=== PATIENT | male | born 1970 | race American Indian/Alaskan Native ===

== ENCOUNTER 2017-05-24 13:09 | Emergency (ER) | payer OTHER ==
[2017-05-24] MEDS ORDERED: ASPIRIN PO ONE (15:21)
[2017-05-24 16:01] LABS: Basophils # (Auto) 0.1 K/mm3 (0.0-0.1); Basophils % (Auto) 0.6 % (0.0-1.8); Eosinophils # (Auto) 0.2 K/mm3 (0.0-0.4); Eosinophils % (Auto) 1.8 % (0.0-4.3); Hematocrit 46.1 % (35.5-45.6); Hemoglobin 15.3 gm/dl (11.8-15.2); Lymphocytes # (Auto) 1.6 K/mm3 (1.2-5.4); Lymphocytes % (Auto) 15.8 % (13.4-35.0); Mean Corpuscular HGB Conc 33 % (32-34); Mean Corpuscular Hemoglobin 29 pg (28-32); Mean Corpuscular Volume 87 fl (84-94); Monocytes # (Auto) 1.1 K/mm3 (0.0-0.8); Monocytes % (Auto) 11.3 % (0.0-7.3); Platelet Count 253 K/mm3 (140-440); Red Blood Count 5.32 M/mm3 (3.65-5.03)
[2017-05-24 16:19] LABS: BUN/Creatinine Ratio 11; Blood Urea Nitrogen 15 mg/dL (9-20); Calcium 9.6 mg/dL (8.4-10.2); Hemolysis Index 4
--- NOTE | 2017-05-24 20:03 | XRay Report ---
FINAL REPORT EXAM: XR CHEST ROUTINE 2V HISTORY: cp/sob TECHNIQUE: PA and lateral views of the chest PRIORS: None. FINDINGS: Lines, tubes, and devices: N/A Lungs and pleura: Trachea is normal in position. Lungs are clear of infiltrate, pleural effusion, vascular congestion, or pneumothorax. Cardiomediastinal silhouette: Cardiac and mediastinal silhouettes are unremarkable. Other: Bony structures are intact. IMPRESSION: No acute cardiopulmonary process seen.
[2017-05-25 00:36] VITALS: BP 115/76
[2017-05-25] MEDS ORDERED: AUGMENTIN 875 MG PO ONE (00:40)
--- NOTE | 2017-05-25 00:40 | Emergency Department Report ---
ED General Adult HPI - General Chief complaint: Chest Pain Stated complaint: coughing up blood Time Seen by Provider: 05/25/17 00:03 Source: patient Mode of arrival: Ambulatory Limitations: No Limitations - History of Present Illness Initial comments: She is a 47-year-old -[place] male who is presenting with cough cold congestion and sinus tenderness for approximately 1 week and a half. Patient states that he was getting nosebleeds specifically when he blows his nose. He says the mucus and streaks of blood sometimes clots of blood. Patient also has postnasal drip and cough. Patient states when he coughs some of the mucus also is bloody. Patient denies fever shortness of breath difficulty breathing fevers chills nausea vomiting diarrhea at this time. The patient does state that he has some mild occasional right-sided chest pain that lasts for seconds at a time. Patient is chest pain-free at this time. Location: face (patient states he has tenderness in the maxillary as well as ethmoid sinus area) Radiation: non-radiation Severity scale (0 -10): 5 Quality: burning - Related Data Previous Rx's Medication Instructions Recorded Last Taken Type Amoxicillin/Potassium Clav 1 each PO TID #21 tablet 05/25/17 Unknown Rx [Augmentin 875-125 Tablet] Benzonatate [Tessalon Perle] 100 mg PO Q8HR #12 capsule 05/25/17 Unknown Rx Fluticasone [Flonase] 1 spray NS QDAY #1 bottle 05/25/17 Unknown Rx Allergies Allergy/AdvReac Type Severity Reaction Status Date / Time No Known Allergies Allergy Verified 05/25/17 00:11 ED Review of Systems ROS: Stated complaint: SORE THROAT Other details as noted in HPI Comment: All other systems reviewed and negative Constitutional: denies: chills, fever Eyes: denies: eye pain, eye discharge, vision change ENT: denies: ear pain, throat pain Respiratory: cough. denies: shortness of breath, wheezing Cardiovascular: denies: chest pain, palpitations Endocrine: no symptoms reported Gastrointestinal: denies: abdominal pain, nausea, diarrhea Genitourinary: denies: urgency, dysuria Musculoskeletal: denies: back pain, joint swelling, arthralgia Skin: denies: rash, lesions Neurological: denies: headache, weakness, paresthesias Psychiatric: denies: anxiety, depression Hematological/Lymphatic: denies: easy bleeding, easy bruising ED Past Medical Hx - Past Medical History Previous Medical History?: Yes Hx Hypertension: Yes - Surgical History Past Surgical History?: No - Medications Home Medications: Home Medications Medication Instructions Recorded Confirmed Last Taken Type Amoxicillin/Potassium Clav 1 each PO TID #21 tablet 05/25/17 Unknown Rx [Augmentin 875-125 Tablet] Benzonatate [Tessalon Perle] 100 mg PO Q8HR #12 capsule 05/25/17 Unknown Rx Fluticasone [Flonase] 1 spray NS QDAY #1 bottle 05/25/17 Unknown Rx ED Physical Exam - General Limitations: No Limitations General appearance: alert, in no apparent distress - Head Head exam: Present: atraumatic, normocephalic - Eye Eye exam: Present: normal appearance - ENT ENT exam: Present: mucous membranes moist, other (patient has some mild tenderness of the sinuses) - Neck Neck exam: Present: normal inspection - Respiratory Respiratory exam: Present: normal lung sounds bilaterally. Absent: respiratory distress - Cardiovascular Cardiovascular Exam: Present: regular rate, normal rhythm. Absent: systolic murmur, diastolic murmur, rubs, gallop - GI/Abdominal GI/Abdominal exam: Present: soft, normal bowel sounds - Rectal Rectal exam: Present: deferred - Extremities Exam Extremities exam: Present: normal inspection - Back Exam Back exam: Present: normal inspection - Neurological Exam Neurological exam: Present: alert, oriented X3 - Psychiatric Psychiatric exam: Present: normal affect, normal mood - Skin Skin exam: Present: warm, dry, intact, normal color. Absent: rash ED Course Vital Signs 05/24/17 05/25/17 15:17 00:27 Temperature 97.8 F 98 F Pulse Rate 77 81 Respiratory 18 16 Rate Blood Pressure 121/85 Blood Pressure 115/76 [Left] O2 Sat by Pulse 98 96 Oximetry ED Medical Decision Making - Lab Data Result diagrams: 05/24/17 15:44 05/24/17 15:44 - EKG Data -: EKG Interpreted by Me EKG shows normal: sinus rhythm, axis, intervals, QRS complexes, ST-T waves Rate: normal - EKG Data Interpretation: normal EKG - Medical Decision Making Patient is a 47-year-old male who is presenting with symptoms of acute sinusitis. Patient most likely has some postnasal drip and is coughing up some bloody mucus secondary to a sinus infection. Patient was started on Augmentin and symptom control and be discharged home. Critical Care Time: No Critical care attestation.: If time is entered above; I have spent that time in minutes in the direct care of this critically ill patient, excluding procedure time. ED Disposition Clinical Impression: Acute sinusitis Disposition: DC-01 TO HOME OR SELFCARE Is pt being admited?: No Does the pt Need Aspirin: No Condition: Fair Instructions: Sinusitis (ED) Prescriptions: Amoxicillin/Potassium Clav [Augmentin 875-125 Tablet] 1 each PO TID #21 tablet Benzonatate [Tessalon Perle] 100 mg PO Q8HR #12 capsule Fluticasone [Flonase] 1 spray NS QDAY #1 bottle Referrals: ROM ELAINE MD [Primary Care Provider] - 3-5 Days
== END 2017-05-25 00:50 | disposition home or self-care (01) ==
LOC: ED 13:09
DX: J01.90 Acute sinusitis, unspecified (principal); I10 Essential (primary) hypertension
CPT/HCPCS: 36415; 71046; 80048; 84484; 85025; 93005; 93010; 99284

== ENCOUNTER 2017-10-14 18:03 | Inpatient (IN) | payer OTHER ==
[2017-10-14] MEDS ORDERED: ASPIRIN PO ONE (18:21)
[2017-10-14 18:38] LABS: Basophils % (Auto) 0.4 % (0.0-1.8); Eosinophils # (Auto) 0.1 K/mm3 (0.0-0.4); Eosinophils % (Auto) 0.7 % (0.0-4.3); Hematocrit 43.6 % (35.5-45.6); Hemoglobin 14.7 gm/dl (11.8-15.2); Lymphocytes # (Auto) 1.3 K/mm3 (1.2-5.4); Mean Corpuscular HGB Conc 34 % (32-34); Mean Corpuscular Hemoglobin 30 pg (28-32); Mean Corpuscular Volume 87 fl (84-94); Monocytes # (Auto) 0.7 K/mm3 (0.0-0.8); Monocytes % (Auto) 9.2 % (0.0-7.3); Platelet Count 218 K/mm3 (140-440); Red Blood Count 4.98 M/mm3 (3.65-5.03); Red Cell Distribution Width 14.7 % (13.2-15.2)
[2017-10-14 18:56] LABS: BUN/Creatinine Ratio 5; Blood Urea Nitrogen 6 mg/dL (9-20); Hemolysis Index 1
[2017-10-15] MEDS ORDERED: ASPIRIN ONE (01:37)
[2017-10-15] MEDS ORDERED: PERCOCET 5/325 PO ONE (03:41)
--- NOTE | 2017-10-15 03:51 | Emergency Department Report ---
ED Chest Pain HPI - General Chief Complaint: Chest Pain Stated Complaint: CHEST PAIN Time Seen by Provider: 10/15/17 03:37 Source: patient Mode of arrival: Ambulatory Limitations: No Limitations - History of Present Illness Initial Comments: Mr. Jaime is a 47-year-old male with history of hypertension and tobacco abuse. He has severe right-sided chest pain radiating to the right neck and right upper quadrant. No recent travel. No history of leg pain. MD Complaint: chest pain -: Gradual, days(s) (1) Onset: during rest Pain Location: right chest Pain Radiation: neck, abdomen Severity scale (0 -10): 10 Quality: sharp Consistency: constant Worsens With: inspiration, movement re: nausea, vomting - Related Data Home Medications Medication Instructions Recorded Confirmed Last Taken No Known Home Medications [No 10/15/17 10/15/17 Unknown Reported Home Medications] Allergies Allergy/AdvReac Type Severity Reaction Status Date / Time No Known Allergies Allergy Verified 05/25/17 00:11 Heart Score - HEART Score History: Slightly suspicious EKG: Normal Age: 45-65 Risk factors: 1-2 risk factors Troponin: < normal limit HEART Score: 2 ED Review of Systems ROS: Stated complaint: CHEST PAIN Other details as noted in HPI Comment: All other systems reviewed and negative Constitutional: denies: fever, malaise Respiratory: denies: cough Cardiovascular: chest pain Gastrointestinal: abdominal pain, nausea, vomiting ED Past Medical Hx - Past Medical History Previous Medical History?: Yes Hx Hypertension: Yes - Surgical History Past Surgical History?: No - Family History Family history: CAD/NH - Social History Smoking Status: Current Every Day Smoker Substance Use Type: None - Medications Home Medications: Home Medications Medication Instructions Recorded Confirmed Last Taken Type No Known Home Medications [No 10/15/17 10/15/17 Unknown History Reported Home Medications] ED Physical Exam - General Limitations: No Limitations General appearance: alert, in no apparent distress - Head Head exam: Present: atraumatic, normocephalic - Eye Eye exam: Present: normal appearance - ENT ENT exam: Present: mucous membranes moist - Neck Neck exam: Present: normal inspection. Absent: tenderness, meningismus - Respiratory Respiratory exam: Present: normal lung sounds bilaterally. Absent: respiratory distress, wheezes, rales, rhonchi - Cardiovascular Cardiovascular Exam: Present: regular rate, normal rhythm, other (pain with palpation right chest). Absent: systolic murmur, diastolic murmur, rubs, gallop - GI/Abdominal GI/Abdominal exam: Present: soft, tenderness (ruq tenderness), normal bowel sounds. Absent: distended, guarding, rebound - Rectal Rectal exam: Present: deferred - Extremities Exam Extremities exam: Present: normal inspection - Back Exam Back exam: Present: normal inspection - Neurological Exam Neurological exam: Present: alert, oriented X3 - Psychiatric Psychiatric exam: Present: normal affect, normal mood - Skin Skin exam: Present: warm, dry, intact, normal color. Absent: rash ED Course Vital Signs 10/14/17 10/15/17 10/15/17 18:08 01:25 01:33 Temperature 98.5 F 98.9 F Pulse Rate 81 82 81 Respiratory 20 11 L 16 Rate Blood Pressure 148/97 Blood Pressure 135/89 [Left] O2 Sat by Pulse 97 97 99 Oximetry 10/15/17 10/15/17 02:00 03:30 Temperature 98.2 F Pulse Rate 81 83 Respiratory 22 Rate Blood Pressure 132/81 Blood Pressure 125/79 [Left] O2 Sat by Pulse 99 Oximetry ED Medical Decision Making - Lab Data Result diagrams: 10/14/17 18:26 10/14/17 18:26 Laboratory Results - last 24 hr 10/14/17 10/14/17 10/14/17 18:26 18:26 20:58 WBC 7.8 RBC 4.98 Hgb 14.7 Hct 43.6 MCV 87 MCH 30 MCHC 34 RDW 14.7 Plt Count 218 Lymph % (Auto) 16.0 Noble % (Auto) 9.2 H Eos % (Auto) 0.7 Baso % (Auto) 0.4 Lymph # 1.3 Noble # 0.7 Eos # 0.1 Baso # 0.0 Seg Neutrophils % 73.7 H Seg Neutrophils # 5.8 Sodium 138 Potassium 4.0 Chloride 100.9 Carbon Dioxide 27 Anion Gap 14 BUN 6 L Creatinine 1.3 Estimated GFR > 60 BUN/Creatinine Ratio 5 Glucose 93 Calcium 9.0 Troponin T < 0.010 < 0.010 10/15/17 02:22 WBC RBC Hgb Hct MCV MCH MCHC RDW Plt Count Lymph % (Auto) Noble % (Auto) Eos % (Auto) Baso % (Auto) Lymph # Noble # Eos # Baso # Seg Neutrophils % Seg Neutrophils # Sodium Potassium Chloride Carbon Dioxide Anion Gap BUN Creatinine Estimated GFR BUN/Creatinine Ratio Glucose Calcium Troponin T < 0.010 Vital Signs - 24 hr 10/14/17 10/15/17 10/15/17 18:08 01:25 01:33 Temperature 98.5 F 98.9 F Pulse Rate 81 82 81 Respiratory 20 11 L 16 Rate Blood Pressure 148/97 Blood Pressure 135/89 [Left] O2 Sat by Pulse 97 97 99 Oximetry 10/15/17 02:00 Temperature Pulse Rate 81 Respiratory Rate Blood Pressure 132/81 Blood Pressure [Left] O2 Sat by Pulse Oximetry - EKG Data 10/15/17 03:45 EKG obtained 2121 Rate 70 bpm normal sinus rhythm normal axis normal intervals no ST elevationof ischemia or signs of pericarditis EKG unchanged from 05/24/2017 there is P-wave enlargement - Medical Decision Making Mr. Jaime presents with constant right-sided chest and abdominal pain worse with inspiration. CTA revealed pulmonary arterial emboli in the right lower lobe with small bilateral effusions. Admitted to the hospitalist service. Heparin protocol initiated in the ED. Critical care attestation.: If time is entered above; I have spent that time in minutes in the direct care of this critically ill patient, excluding procedure time. ED Disposition Clinical Impression: Pulmonary emboli Disposition: OP ADMIT IP TO THIS HOSP Is pt being admited?: Yes Does the pt Need Aspirin: No Condition: Stable Referrals: PRIMARY CARE, [Primary Care Provider] - 3-5 Days Time of Disposition: 04:45
--- NOTE | 2017-10-15 04:51 | Cat Scan Report ---
FINAL REPORT EXAM: CT ANGIO CHEST HISTORY: right chest pain TECHNIQUE: A CT angiogram was performed following the intravenous injection of 100 cc of Omnipaque 350. Sagittal and coronal MIP reconstructions were reviewed. FINDINGS: The lungs are mildly congested with bilateral small effusions. There are atelectatic changes in the right lower lobe. The heart size is normal. Pericardial fluid is not seen. There are several partially occlusive emboli in the secondary right lower lobe pulmonary arteries. No additional emboli are identified. There no evidence of adenopathy. The skeletal structures do not show any acute changes. The thoracic aorta appears normal. At the thoracic inlet the thyroid gland appears normal. IMPRESSION: Several partially occlusive emboli in the right lower lobe pulmonary arteries. Mild vascular congestion with bilateral small pleural effusions. Atelectatic changes in the right lower lobe noted also. No evidence of thoracic aortic aneurysm or dissection
--- NOTE | 2017-10-15 05:10 | Cat Scan Report ---
FINAL REPORT EXAM: CT ABDOMEN PELVIS W CON HISTORY: ruq pain TECHNIQUE: Routine axial imaging was obtained of the abdomen and pelvis following the intravenous injection of 100 cc of Omnipaque 350. Sagittal and coronal reconstructions were reviewed. Delayed imaging was obtained of the kidneys ureters and bladder. FINDINGS: The lung bases reveal bilateral small effusions with atelectatic changes in the right lower lobe. The liver, gallbladder, biliary tree, pancreas, spleen, and adrenal glands appear normal. The kidneys enhance normally. There is a 1 cm cortical cyst posteriorly in the left kidney. There is no evidence of hydronephrosis. The vascular structures enhance normally. The bowel loops are normal in caliber and course. The appendix is not enlarged. There is no evidence of free fluid or adenopathy. In the pelvis the prostate gland and bladder appear normal. The skeletal structures reveal arthritic changes at the L4-5 level in the lumbar spine. IMPRESSION: No acute process in the abdomen and pelvis. Disc degeneration at the L4-5 level. Bilateral small effusions with atelectatic changes in the right lower lobe.
[2017-10-15] MEDS ORDERED: HEPARIN 10,000 UNITS/10 ML IV ONE (05:20)
[2017-10-15] MEDS ORDERED: ZOFRAN IV ONE (05:22)
[2017-10-15] MEDS ORDERED: DILAUDID IV ONE (05:22)
[2017-10-15] MEDS ORDERED: MORPHINE IV PRN (05:30)
[2017-10-15] MEDS ORDERED: ZOFRAN IV PRN (05:32)
[2017-10-15] MEDS ORDERED: TYLENOL PO PRN (05:34)
[2017-10-15 05:59] LABS: Partial Thromboplastin Time 32.3 Sec. (24.2-36.6)
[2017-10-15] MEDS: HEPARIN/ 0.45% NACL-25,000 UNIT/500 ML 25,000 UNIT/500 ML BAG IV SCH (06:03)
[2017-10-15 07:24] LABS: Creatine Kinase MB < 1.0 ng/mL (0.0-4.0)
--- NOTE | 2017-10-15 13:57 | Event Note ---
Date: 10/15/17 Pt seen and examined Admitted for Acute PE and DVT, cont heparin drip, also started on coumadin from today. Will cont current Mx and plan as dictated in h and p.
[2017-10-15 14:25] LABS: Creatine Kinase MB < 1.0 ng/mL (0.0-4.0)
--- NOTE | 2017-10-15 16:59 | Consultation ---
History of Present Illness Consult date: 10/15/17 Requesting physician: WILLIS CROCKETT Reason for consult: pulmonary embolism Medications and Allergies Allergies Allergy/AdvReac Type Severity Reaction Status Date / Time No Known Allergies Allergy Verified 05/25/17 00:11 Home Medications Medication Instructions Recorded Confirmed Last Taken Type No Known Home Medications [No 10/15/17 10/15/17 Unknown History Reported Home Medications] Active Meds: Active Medications Acetaminophen (Tylenol) 650 mg PO Q4H PRN PRN Reason: For Mild Pain/Fever/Headache Heparin Sodium/Sodium Chloride (Heparin/ 0.45% Nacl-25,000 Unit/500 Ml) 25,000 unit in 500 mls @ 26 mls/hr IV TITR [facility]; Protocol Last Admin: 10/15/17 06:03 Dose: 1,300 units/hr, 26 mls/hr Morphine Sulfate (Morphine) 2 mg IV Q3H PRN PRN Reason: Pain, Moderate (4-6) Last Admin: 10/15/17 12:59 Dose: 2 mg Ondansetron HCl (Zofran) 4 mg IV Q8H PRN PRN Reason: Nausea And Vomiting Last Admin: 10/15/17 12:59 Dose: 4 mg Oxycodone/Acetaminophen (Percocet 5/325) 2 tab PO Q4H PRN PRN Reason: Pain, Moderate (4-6) Warfarin Sodium (Coumadin) 7.5 mg PO DAILY@1700 [facility]; Protocol Warfarin Sodium (Coumadin Pharmacy To Dose) 1 each PO PKCONSULT [facility] Physical Examination Vital signs: Vital Signs Temp Pulse Resp BP Pulse Ox 98.5 F 81 20 148/97 97 10/14/17 18:08 10/14/17 18:08 10/14/17 18:08 10/14/17 18:08 10/14/17 18:08 Results - Laboratory Findings CBC and BMP: 10/14/17 18:26 10/14/17 18:26 PT/INR, D-dimer PT 13.7 Sec. (12.2-14.9) 10/15/17 05:41 INR 1.00 (0.87-1.13) 10/15/17 05:41 Abnormal lab findings: Abnormal Labs 10/14/17 10/14/17 18:26 18:26 [place] % (Auto) 9.2 H Seg Neutrophils % 73.7 H BUN 6 L
[2017-10-15] MEDS: COUMADIN PO SCH (19:01)
[2017-10-15] MEDS ORDERED: MORPHINE IV ONE (20:46)
[2017-10-16] MEDS: HEPARIN/ 0.45% NACL-25,000 UNIT/500 ML 25,000 UNIT/500 ML BAG IV SCH ×2 (01:12→19:38)
[2017-10-16 06:35] LABS: INR 1.06 (0.87-1.13)
[2017-10-16] MEDS: PERCOCET 5/325 PO PRN ×2 (08:39→19:39)
--- NOTE | 2017-10-16 09:31 | Hem/Onc Consultation ---
History of Present Illness - Reason for Consult Consult date: 10/16/17 - History of Present Illness dictated Medications and Allergies Allergies Allergy/AdvReac Type Severity Reaction Status Date / Time No Known Allergies Allergy Verified 05/25/17 00:11 Home Medications Medication Instructions Recorded Confirmed Last Taken Type No Known Home Medications [No 10/15/17 10/15/17 Unknown History Reported Home Medications] Active Meds: Active Medications Acetaminophen (Tylenol) 650 mg PO Q4H PRN PRN Reason: For Mild Pain/Fever/Headache Heparin Sodium/Sodium Chloride (Heparin/ 0.45% Nacl-25,000 Unit/500 Ml) 25,000 unit in 500 mls @ 26 mls/hr IV TITR [facility]; Protocol Last Admin: 10/16/17 01:12 Dose: 1,300 units/hr, 26 mls/hr Morphine Sulfate (Morphine) 2 mg IV Q3H PRN PRN Reason: Pain, Moderate (4-6) Last Admin: 10/15/17 12:59 Dose: 2 mg Ondansetron HCl (Zofran) 4 mg IV Q8H PRN PRN Reason: Nausea And Vomiting Last Admin: 10/15/17 12:59 Dose: 4 mg Oxycodone/Acetaminophen (Percocet 5/325) 2 tab PO Q4H PRN PRN Reason: Pain, Moderate (4-6) Last Admin: 10/16/17 08:39 Dose: 2 tab Warfarin Sodium (Coumadin) 7.5 mg PO DAILY@1700 [facility]; Protocol Last Admin: 10/15/17 19:01 Dose: 7.5 mg Warfarin Sodium (Coumadin Pharmacy To Dose) 1 each PO PKCONSULT [facility] Exam - Constitutional Vitals: Last Vital Signs Temp 99.0 F 10/16/17 06:09 Pulse 72 10/16/17 06:09 Resp 20 10/16/17 06:09 BP 105/56 10/16/17 06:09 Pulse Ox 98 10/16/17 08:16 Results - Labs lab Results: Laboratory Results - last 24 hr 10/15/17 10/15/17 10/15/17 13:37 13:37 18:43 PT INR Heparin Anti-Xa Level 0.47 POC ABG pH 7.457 H POC ABG pCO2 36.7 POC ABG pO2 70 L POC ABG HCO3 26.0 POC ABG Total CO2 27 POC ABG O2 Sat 95 POC ABG Base Excess 2 FiO2 21 Total Creatine Kinase 96 CK-MB (CK-2) < 1.0 CK-MB (CK-2) Rel Index 1.0 Troponin T < 0.010 10/16/17 Unknown PT 14.4 INR 1.06 Heparin Anti-Xa Level POC ABG pH POC ABG pCO2 POC ABG pO2 POC ABG HCO3 POC ABG Total CO2 POC ABG O2 Sat POC ABG Base Excess FiO2 Total Creatine Kinase CK-MB (CK-2) CK-MB (CK-2) Rel Index Troponin T
--- NOTE | 2017-10-16 10:45 | Progress Note ---
Assessment and Plan Acute Respiratory Distress Severe Chest Pain Acute Pulmonary Embolism HTN Tobacco Use Disorder DJD - supplemental oxygen to keep O2 Sats > 90% prn - prn analgesia - add incentive spirometry - continue IV heparin - Oral anticoagulation X 3 months - GI prophylaxis - Flu & Pneumovax per protocol - tobacco cessation counselled .. 25' Subjective Date of service: 10/16/17 Principal diagnosis: Acute Pulmonary Embolism; Severe Chest Pain; Tobacco Abuse Interval history: Patient is seen today for: Acute Pulmonary Embolism Seen and examined at bedside; 24hour events reviewed; nursing and respiratory care staff consulted; no adverse overnight events reported to me; resting peacefully in bed; chest pain better; no hemoptysis; on IV heparin; No N/V/F/C Objective Vital Signs - 12hr 10/15/17 10/16/17 10/16/17 23:39 06:09 07:53 Temperature 99.4 F 99.0 F 99.9 F H Pulse Rate 75 72 78 Respiratory 20 20 18 Rate Blood Pressure 128/75 105/56 121/63 O2 Sat by Pulse 98 98 99 Oximetry 10/16/17 08:16 Temperature Pulse Rate Respiratory Rate Blood Pressure O2 Sat by Pulse 98 Oximetry Constitutional: alert, appears uncomfortable Eyes: non-icteric ENT: oropharynx moist, other (mallampatti 2) Neck: supple, no lymphadenopathy, no JVD, other (no thyromegaly) Effort: mildly labored Ascultation: Bilateral: clear Percussion: Bilateral: not dull Cardiovascular: regular rate and rhythm, other (No R/M) Gastrointestinal: normoactive bowel sounds, soft, non-tender, non-distended, other (No HSM) Integumentary: normal Extremities: no cyanosis, no edema, pulses normal, no ischemia or petechiae Neurologic: normal mental status, non-focal exam, pupils equal and round, CN II- XII normal Psychiatric: anxious CBC and BMP: 10/17/17 05:09 10/14/17 18:26 ABG, PT/INR, D-dimer: ABG POC ABG pH 7.457 (7.35-7.45) H 10/15/17 18:43 POC ABG pCO2 36.7 (35-45) 10/15/17 18:43 POC ABG pO2 70 (80-105) L 10/15/17 18:43 POC ABG HCO3 26.0 10/15/17 18:43 POC ABG Total CO2 27 10/15/17 18:43 POC ABG O2 Sat 95 10/15/17 18:43 PT/INR, D-dimer PT 14.4 Sec. (12.2-14.9) 10/16/17 Unknown INR 1.06 (0.87-1.13) 10/16/17 Unknown Abnormal lab findings: Abnormal Labs 10/14/17 10/14/17 10/15/17 18:26 18:26 18:43 [place] % (Auto) 9.2 H Seg Neutrophils % 73.7 H POC ABG pH 7.457 H POC ABG pO2 70 L BUN [address] scan - chest: report reviewed Allied health notes reviewed: nursing
--- NOTE | 2017-10-16 15:16 | Progress Note ---
Assessment and Plan RT sided acute PE - patially occlusive right LL pulmonary artery - cont heparin drip, po coumadin - follow hematology recommendation - will f/u 2d echo result Acute respiratory failure - due to acute PE - duenebs, anticoagulation, N/C O2 to keep O2 sat >92% Degenerative joint disease, supportive care, outpt f/u h/o HTN, stable with dietary control Subjective Date of service: 10/16/17 Principal diagnosis: Acute Pulmonary Embolism Interval history: Pt seen and examined c/o right sided pleuretic chest pain Objective - Constitutional Vitals: Vital Signs - 12hr 10/16/17 10/16/17 10/16/17 06:09 07:53 08:16 Temperature 99.0 F 99.9 F H Pulse Rate 72 78 Respiratory 20 18 Rate Blood Pressure 105/56 121/63 O2 Sat by Pulse 98 99 98 Oximetry 10/16/17 12:18 Temperature 98.1 F Pulse Rate 57 L Respiratory 18 Rate Blood Pressure 90/55 O2 Sat by Pulse 95 Oximetry General appearance: Present: no acute distress, well-nourished - EENT Eyes: PERRL, EOM intact ENT: hearing intact, clear oral mucosa Ears: bilateral: normal - Neck Neck: supple, normal ROM - Respiratory Respiratory effort: normal Respiratory: bilateral: CTA - Cardiovascular Rhythm: regular Heart Sounds: Present: S1 & S2. Absent: gallop, rub Extremities: pulses intact, No edema, normal color, Full ROM - Gastrointestinal General gastrointestinal: Present: soft, non-tender, non-distended, normal bowel sounds - Integumentary Integumentary: clear, warm, dry - Musculoskeletal Musculoskeletal: 1, strength equal bilaterally - Neurologic Neurologic: moves all extremities - Psychiatric Psychiatric: memory intact, appropriate mood/affect, intact judgment & insight - Labs CBC & Chem 7: 10/17/17 05:09 10/14/17 18:26 Labs: Abnormal lab results 10/15/17 Range/Units 18:43 POC ABG pH 7.457 H (7.35-7.45) POC ABG pO2 70 L (80-105)
[2017-10-16] MEDS: COUMADIN PO SCH (17:39)
[2017-10-17 05:51] LABS: Hematocrit 37.2 % (35.5-45.6); Hemoglobin 12.9 gm/dl (11.8-15.2)
[2017-10-17 05:59] LABS: INR 1.15 (0.87-1.13)
[2017-10-17] MEDS: PERCOCET 5/325 PO PRN ×3 (09:26→22:02)
[2017-10-17] MEDS: HEPARIN/ 0.45% NACL-25,000 UNIT/500 ML 25,000 UNIT/500 ML BAG IV SCH (13:17)
--- NOTE | 2017-10-17 14:31 | Progress Note ---
Assessment and Plan RT sided acute PE - patially occlusive right LL pulmonary artery - start on eliquis - follow hematology recommendation - preserved EF on 2d echo Acute respiratory failure - due to acute PE - duenebs, anticoagulation, N/C O2 to keep O2 sat >92% Degenerative joint disease, supportive care, outpt f/u h/o HTN, stable with dietary control Subjective Date of service: 10/17/17 Principal diagnosis: Acute Pulmonary Embolism Interval history: Pt seen and examined c/o right sided pleuretic chest pain, but improved Objective - Constitutional Vitals: Vital Signs - 12hr 10/17/17 10/17/17 10/17/17 03:56 05:00 07:50 Temperature 100.9 F H Pulse Rate 81 84 Respiratory 16 20 Rate Blood Pressure 115/67 O2 Sat by Pulse 99 Oximetry 10/17/17 10/17/17 09:26 10:26 Temperature Pulse Rate Respiratory 20 20 Rate Blood Pressure O2 Sat by Pulse Oximetry General appearance: Present: no acute distress - EENT Eyes: PERRL, EOM intact ENT: hearing intact, clear oral mucosa Ears: bilateral: normal - Neck Neck: supple, normal ROM - Respiratory Respiratory effort: normal Respiratory: bilateral: CTA - Cardiovascular Rhythm: regular Heart Sounds: Present: S1 & S2. Absent: gallop, rub Extremities: pulses intact, No edema, normal color, Full ROM - Gastrointestinal General gastrointestinal: Present: soft, non-tender, non-distended, normal bowel sounds - Integumentary Integumentary: clear, warm, dry - Musculoskeletal Musculoskeletal: 1, strength equal bilaterally - Neurologic Neurologic: moves all extremities - Psychiatric Psychiatric: memory intact, appropriate mood/affect, intact judgment & insight - Labs CBC & Chem 7: 10/17/17 05:09 10/14/17 18:26 Labs: Abnormal lab results 10/17/17 Range/Units 05:09 PT 15.3 H (12.2-14.9) Sec. INR 1.15 H (0.87-1.13) - Imaging and cardiology CT scan - chest: report reviewed
--- NOTE | 2017-10-17 19:12 | Progress Note ---
Assessment and Plan atient still complaining pleuritic type of chest pain right lower chest.Patient is on 2 litres O2 via nasal canula.O2 saturation 98%. Patient is on I/V Heparin. Patient smokes. 1 Pck of cigaretts/day for 20 years.Counselled to stop smoking. - Patient Problems (1) Pulmonary emboli Current Visit: Yes Status: Acute Plan to address problem: Patient is on I/V Heparin O2 supplementation. Patient also started on PO Apixaban. Recommend to get Protein C, Protein S, Anti thrombin level. (2) Tobacco use disorder Current Visit: Yes Status: Acute Plan to address problem: Counselled to stop smoking. Subjective Date of service: 10/17/17 Principal diagnosis: Acute Pulmonary Embolism Interval history: Patient still complaining pleuritic type of chest pain right lower chest.Patient is on 2 litres O2 via nasal canula.O2 saturation 98%. Patient is on I/V Heparin. Patient smokes. 1 Pck of cigaretts/day for 20 years.Counselled to stop smoking. Objective Vital Signs - 12hr 10/17/17 10/17/17 10/17/17 07:50 09:26 10:26 Respiratory 20 20 20 Rate 10/17/17 17:08 Respiratory 20 Rate Constitutional: no acute distress, alert Eyes: non-icteric Neck: supple Effort: mildly labored Ascultation: Right: diminished breath sounds Cardiovascular: regular rate and rhythm Gastrointestinal: normoactive bowel sounds, soft, non-tender Integumentary: normal Extremities: no cyanosis, no edema Neurologic: normal mental status, non-focal exam, pupils equal and round, CN II- XII normal Psychiatric: mood appropriate CBC and BMP: 10/17/17 05:09 10/14/17 18:26 ABG, PT/INR, D-dimer: ABG POC ABG pH 7.457 (7.35-7.45) H 10/15/17 18:43 POC ABG pCO2 36.7 (35-45) 10/15/17 18:43 POC ABG pO2 70 (80-105) L 10/15/17 18:43 POC ABG HCO3 26.0 10/15/17 18:43 POC ABG Total CO2 27 10/15/17 18:43 POC ABG O2 Sat 95 10/15/17 18:43 PT/INR, D-dimer PT 15.3 Sec. (12.2-14.9) H 10/17/17 05:09 INR 1.15 (0.87-1.13) H 10/17/17 05:09 Abnormal lab findings: Abnormal Labs 10/14/17 10/14/17 10/15/17 18:26 18:26 18:43 [place] % (Auto) 9.2 H Seg Neutrophils % 73.7 H PT INR Heparin Anti-Xa Level POC ABG pH 7.457 H POC ABG pO2 70 L BUN 6 L 10/17/17 10/17/17 05:09 15:03 [place] % (Auto) Seg Neutrophils % PT 15.3 H INR 1.15 H Heparin Anti-Xa Level 0.26 L POC ABG pH POC ABG pO2 BUN CT scan - chest: report reviewed (Several partially occuluded emboli in right lower lobe pulmonary arteries.) Prior PFT's, U/S of legs: report reviewed (No evidence of DVT in either legs.)
[2017-10-17] MEDS: ELIQUIS PO SCH (22:02)
[2017-10-18] MEDS: PERCOCET 5/325 PO PRN ×2 (05:25→09:48)
[2017-10-18 05:30] VITALS: BP 128/73
[2017-10-18 06:36] LABS: INR 1.63 (0.87-1.13)
--- NOTE | 2017-10-18 09:15 | History and Physical Report ---
CHIEF COMPLAINT: Right-sided chest pain. HISTORY OF PRESENTING ILLNESS: The patient is a 47-year-old male, who said he has been having right-sided chest pain, radiating to the right side of the neck and right upper abdominal quadrant. There is also a history of associated shortness of breath with no cough. The patient denied history of nausea and vomiting and denied a history of diaphoresis and said the pain is worsened by inspiration and movement. There is no history of fever or chills. PAST MEDICAL HISTORY: Pertinent for hypertension. PAST SURGICAL HISTORY: Unremarkable. FAMILY HISTORY: Pertinent for coronary artery disease. SOCIAL HISTORY: The patient smokes cigarettes, does not drink alcohol, does not use illicit drugs. MEDICATIONS: The patient's home medications are not known. ALLERGIES: There are no known drug allergies. REVIEW OF SYSTEMS: CONSTITUTIONAL: There is no fever, no chills, no diaphoresis. HEENT: There is no headache or sore throat. CARDIOVASCULAR: Right-sided chest pain noted. No orthopnea. RESPIRATORY: Shortness of breath noted. No cough. GASTROINTESTINAL: There is no nausea, no vomiting. Right upper quadrant abdominal pain noted. No constipation. No diarrhea. MUSCULOSKELETAL: There is no joint pain or swelling. NEUROLOGICAL: There is no dizziness, no altered mental status. DERMATOLOGICAL: There is no skin rash or itching. GENITOURINARY: There is no dysuria, hematuria or flank pain. Rest of system review is normal. PHYSICAL EXAMINATION: GENERAL: At the time of exam, the patient was found to be alert, oriented x 3 and not in acute distress. VITAL SIGNS: Show temperature of 98.2, pulse of 83, respirations 22, blood pressure 125/79, O2 sat of 99% on room air. HEENT: Shows pupils to be equal, round, reactive to light and accommodation. Extraocular muscles are intact. NECK: Supple with no JVD or carotid bruit. CARDIOVASCULAR: Showed normal first and second heart sounds with no gallops or murmurs. RESPIRATORY: Shows good air entry on both sides of the lungs with no abnormal breath sounds. GASTROINTESTINAL: Show abdomen to be full, soft, nontender with no organomegaly or rigidity. NEUROLOGICAL: Shows no focal deficit. MUSCULOSKELETAL: Shows no joint swelling or tenderness. DERMATOLOGICAL: Showing no skin rash. GENITOURINARY: Showing no costovertebral angle tenderness. PERTINENT LABORATORY AND IMAGING STUDIES: The patient had a CBC done that came back unremarkable except for abnormal CBC differential showing elevated monocyte count of 9.2 and elevated segmented neutrophil of 73.7. The patient's chemistry was unremarkable and the patient's cardiac enzyme troponin came back unremarkable. IMAGING STUDIES: The patient has CT of the abdomen and pelvis done with contrast that shows no acute process in the abdomen. There is finding of disk degeneration at the level of lumbar 4 and 5 with bilateral small effusion with atelectatic changes in the right lower lobe of the lung. The patient has CT angiogram of the chest done that shows several partially occlusive emboli in the right lower lobe of the pulmonary artery. There is also finding of mild vascular congestion with bilateral small pleural effusions and atelectatic changes in the right lower lobe. There is no evidence of thoracic aortic aneurysm or dissection. DIAGNOSES: 1. Right lung pulmonary embolism. 2. Degenerative joint disease. PLAN: The patient will be admitted to medical floor on telemetry. We will continue IV heparin bolus and drip ordered in the Emergency Room. The patient will be started on Coumadin 5 mg by mouth daily after the heparin drip must have been started and Pharmacy is consulted to manage the Coumadin treatment. The patient will have PT/INR in the morning of 10/16/2017. The patient will also be on morphine 2 mg every 3 hours as needed for pain and will be on IV Zofran 4 mg every 8 hours for nausea and vomiting. The patient will be on Tylenol 650 mg by mouth every 4 hours for fever and headache and will have 2D echo done this morning to try to determine the source of the pulmonary embolism. Also, the patient will have bilateral Doppler ultrasound of the lower extremity to rule out DVT as the possible source of pulmonary embolism. The patient will be on oxygen by nasal cannula at 2 liters per minute and diet will be 2 g sodium diet. JOB# [id number] OCN/NTS
[2017-10-18] MEDS: ELIQUIS PO SCH (09:48)
--- NOTE | 2017-10-18 09:53 | Consultation ---
REFERRING PHYSICIAN: Dr. Pete. REASON FOR CONSULTATION: Pulmonary embolus. HISTORY OF PRESENT ILLNESS: The patient is a 47-year-old male with history of hypertension and tobacco abuse who started having pain in his right side of the chest and arm. He states that the pain was unprovoked. He presented to the hospital where he underwent a CT angiogram where he was found to have pulmonary emboli in the right lower lobe with small bilateral effusions. The patient was started on heparin. An Oncology consult was called for unprovoked DVT. The patient denies any previous history of DVT. He states he has been under a lot of stress. He has lost about 20 pounds, but he says he has had some issues with the family and that has been a bit of a stress. Thus, he lost his appetite. Denies any previous history of malignancy. Denies any family history of malignancy. Denies any prolonged travel. He does not take any hormones. PAST MEDICAL HISTORY: Positive for hypertension. SOCIAL HISTORY: Positive for tobacco abuse. Does not drink alcohol. REVIEW OF SYSTEMS: Positive for weight loss. PHYSICAL EXAMINATION: GENERAL: The patient is awake and oriented. HEENT: Reveals head to be atraumatic. CHEST: Decreased breath sounds and poor inspiratory effort. ABDOMEN: Soft. EXTREMITIES: No clubbing, cyanosis, or edema. LABORATORY DATA: Pertinent labs, patient's hemoglobin on admission 14.7, white count 7.8, platelets 218,000. INR 1.0. ASSESSMENT: 1. Pulmonary emboli in this young patient, unprovoked. 2. Tobacco abuse. PLAN: At this time, we will do hypercoagulable workup. Once stable, he can be switched to Eliquis or Xarelto or Coumadin. I can follow in my office. JOB# [id number] QUINN/LATASHA
[2017-10-18 12:44] LABS: ANA Screen, IFA Negative (Negative)
[2017-10-18 14:15] LABS: Protein S, Free 68 % normal (57-171); Protein S, Total 90 % (70-140)
--- NOTE | 2017-10-18 14:34 | Discharge Summary ---
Providers - Providers Date of Admission: 10/15/17 05:26 Date of discharge: 10/18/17 Attending physician: WILLIS CROCKETT 10/15/17 14:29 Consult to Physician [CONS] Routine Comment: Consulting Provider: VINI YANCEY Physician Instructions: Reason For Exam: PE 10/15/17 14:30 Consult to Physician [CONS] Routine Comment: Consulting Provider: BEKAH PALMER Physician Instructions: Reason For Exam: Unprovoked DVT/ PE Primary care physician: CAR CARDER Hospitalization Condition: Stable Hospital course: Discharge diagnosis: RT sided acute PE - patially occlusive right LL pulmonary artery - start on eliquis - follow hematology recommendation - preserved EF on 2d echo Acute respiratory failure - due to acute PE - duenebs, anticoagulation, N/C O2 to keep O2 sat >92% Tobacco abuse, counselled for cessation Degenerative joint disease, supportive care, outpt f/u h/o HTN, stable with dietary control Disposition: DC- TO HOME OR SELFCARE Time spent for discharge: 32 minutes Core Measure Documentation - Palliative Care Palliative Care/ Comfort Measures: Not Applicable - Core Measures Any of the following diagnoses?: none Exam - Constitutional Vitals: Temp Pulse Resp BP Pulse Ox 98.5 F 74 20 128/73 97 10/18/17 03:59 10/18/17 03:59 10/18/17 05:25 10/18/17 03:59 10/18/17 03:59 General appearance: Present: no acute distress, well-nourished - EENT Eyes: Present: PERRL ENT: hearing intact, clear oral mucosa - Neck Neck: Present: supple, normal ROM - Respiratory Respiratory effort: normal Respiratory: bilateral: CTA - Cardiovascular Heart Sounds: Present: S1 & S2. Absent: rub, click - Extremities Extremities: pulses symmetrical, No edema Peripheral Pulses: within normal limits - Abdominal General gastrointestinal: Present: soft, non-tender, non-distended, normal bowel sounds - Integumentary Integumentary: Present: clear, warm, dry - Musculoskeletal Musculoskeletal: gait normal, strength equal bilaterally - Psychiatric Psychiatric: appropriate mood/affect, intact judgment & insight - Neurologic Neurologic: CNII-XII intact, moves all extremities Plan Activity: advance as tolerated Weight Bearing Status: Non-Weight Bearing Diet: low fat, low salt Follow up with: PRIMARY CARE, [Primary Care Provider] - 3-5 Days Forms: Warfarin Discharge Instruction Prescriptions: Apixaban [Eliquis] 10 mg PO Q12HR #12 tablet Apixaban [Eliquis] 5 mg PO BID 21 Days #22 tablet
== END 2017-10-18 20:47 | disposition home or self-care (01) | DRG 175 ==
LOC: ED 18:03 → 4A 10-15 05:26
PROVIDERS: ADMIT Internal Medicine; ATTEND Internal Medicine
PROC: 4A033R1 Measurement of Arterial Saturation, Peripheral, Percutaneous Approach (ICD-10-PCS; principal; 2017-10-15)
DX: I26.99 Other pulmonary embolism without acute cor pulmonale (principal); J96.00 Acute respiratory failure, unspecified whether with hypoxia or hypercapnia; Z71.6 Tobacco abuse counseling; M19.90 Unspecified osteoarthritis, unspecified site; I10 Essential (primary) hypertension; Z79.01 Long term (current) use of anticoagulants; F17.210 Nicotine dependence, cigarettes, uncomplicated
CPT/HCPCS: 36415; 36600; 71275; 74177; 80048; 82550; 82553; 82803; 83516; 83880; 84484; 85014; 85018; 85025; 85049; 85210; 85220; 85301; 85305; 85520; 85610; 85613; 85730; 86038; 93005; 93010; 93306; 93970; 94760; 96374; 96375; 99285; 99406; J1170; J1644; J2270; J2405; Q9967

== ENCOUNTER 2021-09-11 09:17 | Emergency (ER) | payer SELFPAY ==
[2021-09-11] MEDS ORDERED: IBUPROFEN 600 MG TAB PO ONE (13:03)
--- NOTE | 2021-09-11 13:12 | Emergency Department Report ---
ED General Adult HPI - General Chief complaint: Extremity Problem,Nontraumatic Stated complaint: DISLOCATED RT SHOULDER Time Seen by Provider: 09/11/21 12:50 Source: patient Mode of arrival: Ambulatory Limitations: No Limitations - History of Present Illness Initial comments: 51-year-old -[place] male presents to the emergency room complaining of chronic right shoulder pain. Patient states he thinks he dislocated it as he has a bone that he feels in his shoulder. Patient also complains of pain behind his right knee. States he has had that for about a week. 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 He has not taken anything for pain. His is the first time he has been seen for it. Onset/Timin -: week(s) Location: right, upper extremity (Shoulder), lower extremity (Posterior knee) Severity scale (0 -10): 8 Quality: stabbing, aching, sharp Consistency: intermittent Improves with: movement Worsens with: movement Associated Symptoms: denies: chest pain, cough, diaphoresis, fever/chills, loss of appetite, nausea/vomiting, shortness of breath, weakness Treatments Prior to Arrival: none - Related Data Previous Rx's Medication Instructions Recorded Last Taken Type Acetaminophen [Tylenol Extra 500 mg PO Q6H #30 tab 10/18/17 Unknown Rx Strength] Apixaban [Eliquis] 5 mg PO BID 21 Days #22 tablet 10/18/17 Unknown Rx Apixaban [Eliquis] 10 mg PO Q12HR #12 tablet 10/18/17 Unknown Rx Allergies Allergy/AdvReac Type Severity Reaction Status Date / Time No Known Allergies Allergy Verified 05/25/17 00:11 ED Review of Systems ROS: Stated complaint: DISLOCATED RT SHOULDER Other details as noted in HPI Comment: All other systems reviewed and negative ED Past Medical Hx - Past Medical History Hx Hypertension: Yes - Social History Smoking Status: Current Every Day Smoker - Medications Home Medications: Home Medications Medication Instructions Recorded Confirmed Last Taken Type Acetaminophen [Tylenol Extra 500 mg PO Q6H #30 tab 10/18/17 Unknown Rx Strength] Apixaban [Eliquis] 5 mg PO BID 21 Days #22 tablet 10/18/17 Unknown Rx Apixaban [Eliquis] 10 mg PO Q12HR #12 tablet 10/18/17 Unknown Rx ED Physical Exam - General Limitations: No Limitations ED Course Vital Signs 09/11/21 09:56 Temperature 98.4 F Pulse Rate 60 Respiratory 18 Rate Blood Pressure 119/75 [Right] O2 Sat by Pulse 98 Oximetry ED Medical Decision Making - Radiology Data Radiology results: report reviewed [address] [address] XRay Report Signed Patient: PRADEEP WAGGONER MR#: [id number] : 1970 Acct:[id number] Age/Sex: 51 / M ADM Date: 09/11/21 Loc: ED Attending Dr: Ordering Physician: HARLEEN SANCHEZ Date of Service: 09/11/21 Procedure(s): XR knee 1-2V RT Accession Number(s): [id number] cc: HARLEEN SANCHEZ Fluoro Time In Minutes: RIGHT KNEE 2 VIEW(S) INDICATION / CLINICAL INFORMATION: posterior knee pain COMPARISON: None available. FINDINGS: BONES / JOINT(S): No acute fracture or subluxation. No significant arthritis. SOFT TISSUES: No significant abnormality. ADDITIONAL FINDINGS: None. IMPRESSION: 1. No acute findings. Signer Name: Michel Barone MD Signed: 09/11/2021 1:31 PM Workstation Name: [id number] Transcribed By: SS Dictated By: Michel Barone MD Electronically Authenticated By: Michel Barone MD Signed Date/Time: 09/11/21 133 DD/ [address] [address] XRay Report Signed Patient: PRADEEP WAGGONER MR#: [id number] : 1970 Acct:[id number] Age/Sex: 51 / M ADM Date: 09/11/21 Loc: ED Attending Dr: Ordering Physician: HARLEEN SANCHEZ Date of Service: 09/11/21 Procedure(s): XR shoulder 2+V RT Accession Number(s): [id number] cc: HARLEEN SANCHEZ Fluoro Time In Minutes: RIGHT SHOULDER 3 VIEWS INDICATION / CLINICAL INFORMATION: shoulder pain. COMPARISON: None available. FINDINGS: BONES / JOINT(S): No acute fracture or subluxation. Mild DJD in the AC joint. SOFT TISSUES: No significant abnormality. ADDITIONAL FINDINGS: None. IMPRESSION: 1. No acute findings. Signer Name: David Hannon MD Signed: 09/11/2021 1:34 PM Workstation Name: [id number] Transcribed By: ANN Dictated By: David Hannon MD Electronically Authenticated By: David Hannon MD Signed Date/Time: 09/11/211333 DD/ 33 TD/TT: Print Cancel - Medical Decision Making 51-year-old -[place] male presents to the emergency room complaining of chronic right shoulder pain. Patient states he thinks he dislocated it as he has a bone that he feels in his shoulder. Patient also complains of pain behind his right knee. States he has had that for about a week. 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 He has not taken anything for pain. His is the first time he has been seen for it. X-ray of right shoulder and right knee shows no acute abnormalities. Recommend patient to take Tylenol for pain. Follow-up with orthopedist and a primary care provider. Critical care attestation.: If time is entered above; I have spent that time in minutes in the direct care of this critically ill patient, excluding procedure time. ED Disposition Clinical Impression: Chronic right shoulder pain, Posterior right knee pain Disposition: 01 HOME / SELF CARE / HOMELESS Is pt being admited?: No Does the pt Need Aspirin: No Condition: Stable Instructions: Shoulder Pain, [id number], Acute Knee Pain, Adult, [id number] Additional Instructions: All x-rays are negative for any acute findings. I do recommend following up with an orthopedic provider for your right shoulder and right knee. Tylenol is only pain medication that she can take since you are taking the Eliquis which is a blood thinner. Referrals: PRIMARY MD LUCIO [Primary Care Provider] - 3-5 Days JERMAINE WHEELER MD [Staff Physician] - 3-5 Days Forms: Work/School Release Form(ED) Time of Disposition: 13:59
--- NOTE | 2021-09-11 13:35 | XRay Report ---
RIGHT KNEE 2 VIEW(S) INDICATION / CLINICAL INFORMATION: posterior knee pain COMPARISON: None available. FINDINGS: BONES / JOINT(S): No acute fracture or subluxation. No significant arthritis. SOFT TISSUES: No significant abnormality. ADDITIONAL FINDINGS: None. IMPRESSION: 1. No acute findings. Signer Name: Michel Barone MD Signed: 09/11/2021 1:31 PM Workstation Name: [id number]
--- NOTE | 2021-09-11 13:38 | XRay Report ---
RIGHT SHOULDER 3 VIEWS INDICATION / CLINICAL INFORMATION: shoulder pain. COMPARISON: None available. FINDINGS: BONES / JOINT(S): No acute fracture or subluxation. Mild DJD in the AC joint. SOFT TISSUES: No significant abnormality. ADDITIONAL FINDINGS: None. IMPRESSION: 1. No acute findings. Signer Name: David Hannon MD Signed: 09/11/2021 1:34 PM Workstation Name: [id number]
[2021-09-11 14:21] VITALS: BP 133/85
== END 2021-09-11 14:19 | disposition home or self-care (01) ==
LOC: ED 09:17
DX: M25.511 Pain in right shoulder (principal); I10 Essential (primary) hypertension; F17.200 Nicotine dependence, unspecified, uncomplicated; M25.561 Pain in right knee; Z79.899 Other long term (current) drug therapy
CPT/HCPCS: 99283